=== PATIENT | male | born 1995 | race Hispanic/Latino ===

== ENCOUNTER 2021-07-24 11:22 | Emergency (ER) | payer OTHER ==
[~2021-07-24] VITALS: Ht 180.3 cm; Wt 75.0 kg
[2021-07-24] MEDS ORDERED: KETOROLAC 30 MG/ML 1ML VIAL IV ONE (11:50)
[2021-07-24 12:14] LABS: HEMATOCRIT 47.3 % (42.0-52.0); HEMOGLOBIN 16.1 g/dl (13.5-17.5); MEAN CORPUSCULAR HEMOGLOBIN 30.1 pg (27.0-33.0); MEAN CORPUSCULAR VOLUME 88.6 fl (80.0-96.0); PLATELET COUNT, AUTOMATED 207 10^3/uL (150-450); RED BLOOD COUNT 5.34 10^6/uL (4.30-6.10); WHITE BLOOD COUNT 4.4 10^3/uL (4.0-10.0)
--- OUTSIDE RECORDS SUMMARY | 2021-07-24 12:38 | CCD ---
Author Author [facility] Organization [facility] Address Unknown Phone Unavailable Support Name Relationship Address Phone [facility] Next Of Kin [address] [place] [address] Unavailable HOLLOWAY SHAY Next Of Kin [address] [place] [address] HOLLOWAYALEN Hazel Next Of Kin [address] [place] [address] SHAY BELTRAN Next Of Kin Unknown JEWEL TERESITA Next Of Kin Unknown Care Team Providers Care Career Services Manager Name Role Phone Fish, B Mariano MONTEZ Unavailable Unavailable Fish, B Mariano MONTEZ Unavailable Unavailable Fish, B Mariano MONTEZ Unavailable Unavailable Fish, B Mariano MONTEZ Unavailable Unavailable Fish, B Mariano MONTEZ Unavailable Unavailable Fish, B Mariano MONTEZ Unavailable Unavailable Fish, B Mariano MONTEZ Unavailable Unavailable Fish, B Mariano MONTEZ Unavailable Unavailable Fish, B Mariano MONTEZ Unavailable Unavailable Fish, B Mariano MONTEZ Unavailable Unavailable Fish, B Mariano MONTEZ Unavailable Unavailable Fish, B Mariano MONTEZ Unavailable Unavailable Fish, B Mariano MONTEZ Unavailable Unavailable Fish, B Mariano MONTEZ Unavailable Unavailable Fish, B Mariano MONTEZ Unavailable Unavailable Fish, B Mariano MONTEZ Unavailable Unavailable Fish, B Mariano MONTEZ Unavailable Unavailable Fish, B Mariano MONTEZ Unavailable Unavailable Fish, B Mariano MONTEZ Unavailable Unavailable Fish, B Mariano MONTEZ Unavailable Unavailable Fish, B Mariano MONTEZ Unavailable Unavailable Fish, B Mariano MONTEZ Unavailable Unavailable Fish, B Mariano MONTEZ Unavailable Unavailable Fish, B Mariano MONTEZ Unavailable Unavailable Fish, B Mariano MONTEZ Unavailable Unavailable Fish, B Mariano MONTEZ Unavailable Unavailable Fish, B Mariano MONTEZ Unavailable Unavailable Fish, B Mariano MONTEZ Unavailable Unavailable Fish, B Mariano MONTEZ Unavailable Unavailable Fish, B Mariano MONTEZ Unavailable Unavailable Fish, B Mariano MONTEZ Unavailable Unavailable Fish, B Mariano MONTEZ Unavailable Unavailable Fish, B Mariano MONTEZ Unavailable Unavailable Fish, B Mariano MONTEZ Unavailable Unavailable Fish, B Mariano MONTEZ Unavailable Unavailable Fish, Renetta Quintana MD Unavailable Unavailable Fish, B Mariano MONTEZ Unavailable Unavailable Fish, B Mariano MONTEZ Unavailable Unavailable Fish, B Mariano MONTEZ Unavailable Unavailable Fish, B Mariano MONTEZ Unavailable Unavailable Fish, B Mariano MONTEZ Unavailable Unavailable Fish, B Mariano MONTEZ Unavailable Unavailable Fish, Renetta Quintana MD Unavailable Unavailable Fish, B Mariano MONTEZ Unavailable Unavailable Fish, B Mariano MONTEZ Unavailable Unavailable Fish, B Mariano MONTEZ Unavailable Unavailable Fish, B Mariano MONTEZ Unavailable Unavailable Fish, B Mariano MONTEZ Unavailable Unavailable Fish, B Mariano MONTEZ Unavailable Unavailable Fish, B Mariano MONTEZ Unavailable Unavailable Fish, B Mariano MONTEZ Unavailable Unavailable Fish, B Mariano MONTEZ Unavailable Unavailable Fish, B Mariano MONTEZ Unavailable Unavailable Fish, B Mariano MONTEZ Unavailable Unavailable Fish, B Mariano MONTEZ Unavailable Unavailable Fish, B Mariano MONTEZ Unavailable Unavailable Fish, B Mariano MONTEZ Unavailable Unavailable MCELHERAN, TERESITA PA Unavailable Unavailable MCELHERAN, TERESITA PA Unavailable Unavailable MCELHERAN, TERESITA PA Unavailable Unavailable MCELHERAN, TERESITA PA Unavailable Unavailable MCELHERAN, TERESITA PA Unavailable Unavailable MCELHERAN, TERESITA PA Unavailable Unavailable MCELHERAN, TERESITA PA Unavailable Unavailable MCELHERAN, TERESITA PA Unavailable Unavailable MCELHERAN, TERESITA PA Unavailable Unavailable MCELHERAN, TERESITA PA Unavailable Unavailable MCELHERAN, TERESITA PA Unavailable Unavailable MCELHERAN, TERESITA PA Unavailable Unavailable MCELHERAN, TERESITA PA Unavailable Unavailable MCELHERAN, TERESITA PA Unavailable Unavailable MCELHERAN, TERESITA PA Unavailable Unavailable MCELHERAN, TERESITA PA Unavailable Unavailable MCELHERAN, TERESITA PA Unavailable Unavailable MCELHERAN, TERESITA PA Unavailable Unavailable MCELHERAN, TERESITA PA Unavailable Unavailable MCELHERAN, TERESITA PA Unavailable Unavailable MCELHERAN, TERESITA PA Unavailable Unavailable MCELHERAN, TERESITA PA Unavailable Unavailable MCELAN, TERESITA PA Unavailable Unavailable MCELHERAN, TERESITA PA Unavailable Unavailable MCELHERAN, TERESITA PA Unavailable Unavailable MCELHERAN, TERESITA PA Unavailable Unavailable MCELHERAN, TERESITA PA Unavailable Unavailable MCELHERAN, TERESITA PA Unavailable Unavailable MCELHERAN, TERESITA PA Unavailable Unavailable Mic Sandra MD Unavailable Unavailable Mic Sandra MD Unavailable Unavailable Mic Sandra MD Unavailable Unavailable Mic Sandra MD Unavailable Unavailable Mic Sandra MD Unavailable Unavailable Mic Sandra MD Unavailable Unavailable UNKNOWN, [facility] Unavailable Unavailable TURRIN, LOUISE Unavailable Unavailable TURRIN, LOUISE Unavailable Unavailable TURRIN, LOUISE Unavailable Unavailable TURRIN, LOUISE Unavailable Unavailable CHANLIECCO, C SAMANTHA MD Unavailable Unavailable CHANLIECCO, C SAMANTHA MD Unavailable Unavailable CHANLIECCO, C SAMANTHA MD Unavailable Unavailable CHANLIECCO, C SAMANTHA MD Unavailable Unavailable CHANLIECCO, C SAMANTHA MD Unavailable Unavailable CHANLIECCO, C SAMANTHA MD Unavailable Unavailable CHANLIECCO, C SAMANTHA MD Unavailable Unavailable CHANLIECCO, C SAMANTHA MD Unavailable Unavailable CHANLIECCO, C SAMANTHA MD Unavailable Unavailable CHANLIECCO, C SAMANTHA MD Unavailable Unavailable CHANLIECCO, C SAMANTHA MD Unavailable Unavailable Re-disclosure Warning The records that you are about to access may contain information from federally-assisted alcohol or drug abuse programs. If such information is present, then the following federally mandated warning applies: This information has been disclosed to you from records protected by federal confidentiality rules (42 CFR part 2). The federal rules prohibit you from making any further disclosure of this information unless further disclosure is expressly permitted by the written consent of the person to whom it pertains or as otherwise permitted by 42 CFR part 2. A general authorization for the release of medical or other information is NOT sufficient for this purpose. The Federal rules restrict any use of the information to criminally investigate or prosecute any alcohol or drug abuse patient.The records that you are about to access may contain highly sensitive health information, the redisclosure of which is protected by Article 27-F of the [facility] Public Health law. If you continue you may have access to information: Regarding HIV / AIDS; Provided by facilities licensed or operated by the [facility] Office of Mental Health; or Provided by the [facility] Office for People With Developmental Disabilities. If such information is present, then the following [facility] mandated warning applies: This information has been disclosed to you from confidential records which are protected by state law. State law prohibits you from making any further disclosure of this information without the specific written consent of the person to whom it pertains, or as otherwise permitted by law. Any unauthorized further disclosure in violation of state law may result in a fine or penitentiary sentence or both. A general authorization for the release of medical or other information is NOT sufficient authorization for further disc losure. Encounters Encounter Providers Location Date Indications Data Source(s ) Emergency Attender: SAMANTHA CHANLIECCO MDConsultant: LEO UNKNOWN 07/14/2021 07:35:00 PM EST - 07/14/2021 11:07:00 PM [facility] Patient discharged. Emergency Attender: Mic Sandra MD 03/12/2021 11:03:00 PM EDT - 03/13/2021 12:32:00 AM EDT [facility] Patient discharged. Emergency Attender: LOUISE ANG 2020 12:12:00 PM EDT - 03/07/2021 03:40:00 PM EDT [facility] Patient discharged. OFFICE OUTPATIENT VISIT 15 MINUTES Attender: TERESITA DEMPSEY PA Physical Therapy 02/24/2021 02:30:00 PM EDT [facility] ([facility]) Outpatient Attender: TERESITA MERINO Physical Therapy 02/23/2021 08:45:00 AM EDT [facility] ([facility]) OFFICE OUTPATIENT NEW 30 MINUTES Attender: Mariano Acevedo MD Physic al Therapy 06/07/2020 09:00:00 AM EDT [facility] ([facility]) Immunizations Vaccine Date Status Description Data Source(s) COVID-19 VACCINE Pfizer 05/11/2021 12:00:00 AM EDT completed [facility] Vaccine Series Complete: NOThis Data was Submitted to [facility]. Medications No Information Insurance Providers Payer name Policy type / Coverage type Policy ID Covered alliance party ID Covered alliance party's relationship to brian Policy Brian Plan Information [facility] [employer]UTY [id number] SP [id number] [facility] HUMANA - O/P [id number] 18 [id number] Problems, Conditions, and Diagnoses Code Display Name Description Problem Type Effective Dates Data Source(s) Y990 Civilian activity done for income or pay Civilian activity done for income or pay Diagnosis 07/14/2021 07:35:00 PM [facility] Y9289 Other specified places as the place of o ccurrence of the external cause Other specified places as the place of occurrence of the external cause Diagnosis 07/14/2021 07:35:00 PM [facility] [id number] Overexertion from prolonged static or awkward postures, initial encounter Overexertion from prolonged static or aw kward postures, initial encounter Diagnosis 07/14/2021 07:35:00 PM [facility] [id number] Sprain of anterior cruciate ligament of right knee, initial encounter Sprain of anterior cruciate ligament of right knee, initial encounter Diagnosis 07/14/2021 07:35:00 PM [facility] [id number] Unspecified injury of right lower leg, i nitial encounter Unspecified injury of right lower leg, initial encounter Diagnosis 07:35:00 PM [facility] B57400 Nicotine dependence, other tobacco produ ct, uncomplicated Nicotine dependence, other tobacco product, uncomplicated Diagnosis 03/12 11:03:00 PM EDT [facility] B349 Viral infection, unspecified Viral infection, unspecif ied Diagnosis 03/12/2021 11:03:00 PM EDT [facility] R509 Fever, unspecified Fever, unspecified Diagnosis 11:03:00 PM EDT [facility] N341 Nonspecific urethritis Nonspecific urethritis Diagnosi s 03/07/2021 12:12:00 PM EDT [facility] R300 Dysuria Dysuria Diagnosis 03/07/2021 12:12:00 PM ED T [facility] Surgeries/Procedures Procedure Description Date Indications Data Source(s) OFFICE OUTPATIENT VISIT 15 MINUTES 02/24/2021 12:00:00 AM EDT [facility] ([facility] OFFICE OUTPATIENT VISIT 10 MINUTES 02/23/2021 12:00:00 AM EDT [facility] ([facility] ) OFFICE OUTPATIENT VISIT 25 MINUTES 02/23/2021 12:00:00 AM EDT [facility] ([facility]) ARTHROCENTESIS ASPIR&/INJECTION MAJOR JT/BURSA 020 12:00:00 AM [facility] Results ID Date Data Source [id number] 07/15/2021 09:55:00 AM [facility] [address] [place] [address] PHONE: [phone] FAX: [phone] Name .................. : JAIMEE MARK I Acct Number.................. : [id number] ROOM. ................. : VT-20 MR Number ................... : [id number] Stay type ............. : E/R Discharge Date......... ... : Admit Date ......... : 07/14/21 Admit Phys .................... : CHANLIECCO Date of ....... : 1995 Family Phys ................... : UNKNOWN JAREK Phone .................. : [phone] Age ................................ : 26 Film# .................. .:[id number] Sex ................................. : M Unsigned transcriptions are preliminary reports and do not represent a medical or legal document KNEE COMPLETE-4 OR MORE VWS R 33760KB COMPLETE:07/14/21 20:22 ML 37170 Reason(s): Knee Injury RADIOGRAPHS OF THE RIGHT KNEE 4 VIEWS INDICATION: Knee injury COMPARISON: None. FINDINGS: There is a 5 mm enthesophyte at the upper pole of the patella insertion of the quadriceps. No acute fracture or dislocation. Joint spaces are well preserved. No marginal osteophytes or erosions. No joint effusion. IMPRESSION: No acute fracture. Electronically Reviewed and Signed By Don Medina MD , 07/15/21 09:55, YOHANNES Transcribe Initials: PHUONG , Transcribe Date: 07/14/21 22:51, Dictation Date: Copy for: ANN [facility]AUER via fax Copy for: EMERGENCY DEPT via modem Copy for: 710 MED REC DISCHARGED Page 1 of 1 Name Value Range Interpretation Code Description Data Cinda rce(s) Supporting Document(s) ID Date Data Source [id number] 07/14/2021 07:35:00 PM EST [facility] 1 OrderSheet [facility] Emergency Department [address] [place] [address] Phone #: [phone] 07/14/2021 19:35 Patient: JAS HERMOSILLO I Sex: M : 1995 Age: 26yWEIGHT:74.8 kg (S) HEIGHT:72 inches (S) BMI:22.4ALLERGIES: No Known Drug AllergyCHIEF COMPLAINT: knee, RtDIAGNOSIS: Sprain of the anterior cruciate ligament of the right knee.LAB ORDERSOrder Description Priority Entered Acknowledged InitialedDIAGNOSTIC STUDY ORDERSOrder Description Priority Entered Acknowledged InitialedKnee Complete STAT 19:50 07/14/2021 22:37 Marisol Moody R.N.; Wily Argueta(Oxygen?(No)) Verbal order per; Mookie Tam P.A.-C Reason for Study: Knee Injury, PainMEDICATION/IV/DRIP/FLUID ORDERSOrder Description Priority Entered Acknowledged InitialedMotrin 800 mg PO 22:28 07/14/2021 22:47 Jeri BlairX1 dose: 800 mg Samantha Limon R.N.(NOW x1) ;GENERAL ORDERSOrder Description Priority Entered Acknowledged InitialedKnee Immobilizer 22:28 07/14/2021 22:37 Jeri Rothir(to right knee) Samantha Limon R.N. ;[Electronically signed by Samantha Limon (00:51 07/15/2021)][Electronically signed by Jeri Garibay R.N. (05:09 07/15/2021)][Electronically locked by Jeri Garibay R.N. (05:09 07/15/2021)] Name Value Range Interpretation Code Description Data Cinda rce(s) Supporting Document(s) ID Date Data Source [id number] 07/14/2021 07:35:00 PM [facility] 1 Medication Reconciliation Report [facility] Emergency Department [address] [place] [address] Phone #: ext [phone] 07/14/2021 19:35 Patient: JAS HERMOSILLO I Sex: M : 1995 Age: 26yWeight: 74.8 kgHeight/Length: 72 in.BMI: 22.4ALLERGIES: No Known Drug AllergyThe patient's Home Medications are listed below:CONTINUE TAKING THE FOLLOWING MEDICATIONS: traZODone HCl OralThe source(s) of the original Home Medication information:Not obtained.The following Medications were given to the patient in the Emergency Department:Motrin [PO] PO 800 mg, administered: 22:47 07/14/2021The following Medications were prescribed to the patient:IBU 800 mg tablet Take 1 tablet three times a day as needed for pain for 7 days -- Dispense 21 tablet.Refills: 0. Substitution permitted.Pharmacy - [facility] [id number] [facility] ; [place] [address]. Phone: . -- Samantha Limon Name Value Range Interpretation Code Description Data Cinda rce(s) Supporting Document(s) ID Date Data Source [id number] 07/14/2021 07:35:00 PM [facility] 1 Medication Administration Record [facility] Emergency Department [address] [place] [address] Phone #: ext [phone] 07/14/2021 19:35 Patient: JAS HERMOSILLO I Sex: M : 1995 Age: 26yWeight: 74.8 kgHeight/Length: 72 inBMI: 22.4ALLERGIES: No Known Drug Allergy Date/Time Medication Administered Medication OrderedGiven MOTRIN [PO] (IBUPROFEN) Motrin 800 mg PO X1 dose: 59239:47 07/14/2021 Dose: 800 mg Tablets PO mg (NOW x1)Jeri Julien R.N. Name Value Range Interpretation Code Description Data Cinda rce(s) Supporting Document(s) ID Date Data Source [id number] 07/14/2021 07:35:00 PM EST [facility] 1 General Instructions [facility] Emergency Department [address] [place] [address] Phone #: ext- [phone] 07/14/2021 19:35 Patient: JAS HERMOSILLO I Sex: M : 1995 Age: 26y Sprain of the anterior cruciate ligament of the right knee.INSTRUCTIONS Apply ice for 10 minutes four times a day for two days followed by moist heat 10 minutes four times a day for two days. Don't apply ice directly to skin, don't use while asleep and don't use high setting on heating pad. Use crutches for seven days. Wear knee immobilizer for seven days. No weight bearing on right leg for seven days. Do not work for seven days. (take Motrin for pain. no work x 1 week. use crutches for ambulation x 1 week. follow up with medical post in am for crutches. follow jup with orthopedics if pain is persistent after 1 week). Your Current Medications: Your current home medications have been reviewed. CONTINUE TAKING THE FOLLOWING MEDICATIONS: traZODone HCl Oral. Prescription Medications: IBU 800 mg tablet Take 1 tablet three times a day as needed for pain for 7 days -- Dispense 21 tablet. Refills: 0. Substitution permitted. Pharmacy - [facility] - [id number] [facility] ; [place] [address]. . Follow-up: Follow up with your healthcare provider today. Follow-up with: [facility], , , [address] [address], , [place], [address] Follow up in seven days if not better. Call for an appointment. Reason for referral: evaluation. Summary of care provided to patient via paper. ADDITIONAL INFORMATIONKnee Sprain 2 General Instructions [facility] Emergency Department [address] [place] [address] Phone #: ext- [phone] 07/14/2021 19:35 Patient: JAS HERMOSILLO I Sex: M : 1995 Age: 26y A sprain is an injury to the ligaments or capsule that holds a joint together. There are no brokenbones. Most sprains take 3 to 6 weeks to heal. If it a severe sprain where the ligament is completelytorn, it can take months to recover.Most knee sprains are treated with a splint, knee immobilizer brace, or elastic wrap for support.Severe sprains may rarely require surgery.Home care Stay off the injured leg as much as possible until you can walk on it without pain. If you have a lot of pain with walking, crutches or a walker may be prescribed. (These can be rented or purchased at many pharmacies and surgical or orthopedic supply stores). Follow your healthcare provider's advice about when to begin putting weight on that leg. Keep your leg elevated to reduce pain and swelling. When sleeping, place a pillow under the injured leg. When sitting, support the injured leg so it is above heart level. This is very important during the first 48 hours. 3 General Instructions [facility] Emergency Department [address] [place] [address] Phone #: [phone]- [phone] 07/14/2021 19:35 Patient: JAS HERMOSILLO I Sex: M : 1995 Age: 26y Apply an ice pack over the injured area for 15 to 20 minutes every 3 to 6 hours. You should do this for the first 24 to 48 hours. You can make an ice pack by filling a plastic bag that seals at the top with ice cubes and then wrapping it with a thin towel. Continue to use ice packs for relief of pain and swelling as needed. As the ice melts, be careful to avoid getting your wrap, splint, or cast wet. After 48 hours, apply heat (warm shower or warm bath) for 15 to 20 minutes several times a day, or alternate ice and heat. You can place the ice pack directly over the splint. If you have to wear a xiph-lzj-boac knee brace, you can open it to apply the ice pack, or heat, directly to the knee. Never put ice directly on the skin. Always wrap the ice in a towel or other type of cloth. You may use xvaz-xqz-uocpyts pain medicine to control pain, unless another pain medicine was prescribed. If you have chronic liver or kidney disease or ever had a stomach ulcer or gastrointestinal bleeding, talk with your healthcare provider before using these medicines. If you were given a splint, keep it completely dry at all times. Bathe with your splint out of the water, protected with 2 large plastic bags, sealed with rubber bands or tape at the top end. If a fiberglass splint gets wet, you can dry it with a chairman of the board set to cool. If you have a snsn-fff-ubvd knee brace, you can remove this to bathe, unless told otherwise.Follow-up careFollow up with your doctor as advised. Any X-rays you had today don't show any broken bones,breaks, or fractures. Sometimes fractures don't show up on the first X-ray. Bruises and sprains cansometimes hurt as much as a fracture. These injuries can take time to heal completely. If yoursymptoms don't improve or they get worse, talk with your doctor. You may need a repeat X-ray. IfX-rays were taken, you will be told of any new findings that may affect your care.Call [phone] if you have: Shortness of breath Chest painWhen to seek medical adviceCall your healthcare provider right away if any of these occur: The splint or knee immobilizer brace becomes wet or soft The fiberglass cast or splint remains wet for more than 24 hours Pain or swelling increases The injured leg or toes become cold, blue, numb, or tingly 4 General Instructions [facility] Emergency Department [address] [place] [address] Phone #: [phone]- [phone] 07/14/2021 19:35 Patient: JAS HERMOSILLO I Sex: M : 1995 Age: 26y [id number] [facility]. All rights reserved. This information is not intended as a substitute for professional medical care. Alwaysfollow your healthcare professional's instructions.Crutch WalkingCrutch adjustmentMake sure the crutches you use are adjusted to fit you. When you stand, there should be room to fit 2to 3 fingers between the top of the crutch and your armpit. Your elbow should be slightly bent whenholding the hand transfer operator. When your arms hang down, the crutch handle should be at the top of yourhip.Crutch walkingPlace the crutches forward about 1 foot in front of you. The crutches should be a little farther apartthan your body. Lean your weight forward as you push down on the hand transfer operator. Make sure yourweight is on your hands and your strong leg, not your armpits. Let your body swing forward, landing 5 General Instructions [facility] Emergency Department [address] [place] [address] Phone #: [phone]- [phone] 07/14/2021 19:35 Patient: JAS HERMOSILLO I Sex: M : 1995 Age: 26yon the strong leg. Move the crutches forward again. The crutch and your injured leg should movetogether.Going up steps with no handrails(Up with the good leg) With both crutches (under each armpit) on the same step as your feet, push down on the hand transfer operator. Balancing with very light pressure on the weak leg, let your hands support your weight. Raise your strong leg onto the next higher step. Transfer all your weight to your strong leg (still bent). Move the crutches up to the next step, next to your strong leg. Keep your weight evenly balanced on the two crutches and your strong leg. Straighten your strong knee as you raise your weak leg up to the next step.Going down steps with no handrails(Down with the bad leg) With both crutches (under each armpit) on the same step as your feet, push down on the hand transfer operator. Keep your weight evenly balanced on the two crutches and your strong leg. Bend your strong knee as you lower your weak leg down to the next step. Let your strong leg support you (still bent) as you move the crutches down next to the weak leg. Transfer your weight to your hands. Balance with very light pressure on your weak leg as you lower your strong leg next to your weak legGoing up steps with handrails(Up with the good leg) Face the stairs, holding the handrail with one hand. Place both crutches under your armpit on the opposite side. Push down on the hand transfer operator. Balancing with very light pressure on the weak leg, let your hands s upport your weight. Raise your strong leg onto the next higher step. Transfer all your weight to your strong leg (still bent) as you move the crutches up (while holding on to the handrail) to the next step next to the strong leg. 6 General Instructions [facility] Emergency Department [address] [place] [address] Phone #: ext- [phone] 07/14/2021 19:35 Patient: JAS HERMOSILLO I Sex: M : 1995 Age: 26y Keep your weight evenly balanced on the handrail, the crutches (still under the same armpit opposite the handrail), and your strong leg. Straighten your strong knee as you raise the weak leg up to the next step.Going down steps with handrails(Down with the bad leg) Face the stairs, holding the handrail with one hand. Place both crutches under your armpit on the opposite side. Push down on the hand transfer operator. Balance your weight evenly on the crutches, handrail, and your strong leg. Then bend your strong knee as you lower the weak leg down to the next step. Let the handrail and your strong leg support you (still bent) as you move the crutches down alongside the weak leg. While holding on to the handrail and crutches (under the same armpit on the other side), transfer your weight to your hands, balancing with very light pressure on the weak leg as you lower your strong leg alongside your weak legTip: If you are worried about falling or you feel unsteady, try sitting when going up or down stairsinstead. Sit on the bottom step and keep your injured leg out in front of you. Hold your crutches flatagainst the stairs. Then slide up to the next step on your bottom. Use your free hand and good leg forsupport. Face the same way when going down stairs. [facility]. All rights reserved. This information is not intended as a substitute for professional medical care. Alwaysfollow your healthcare professional's instructions.Knee ImmobilizerA knee immobilizer is a type of brace used to provide support and limit movement of the knee. Thiswill make you more comfortable as your injury heals.Home care The knee brace should be worn whenever you are out of bed, unless told otherwise. You may wear it in bed while asleep for the first few nights or until the pain starts to go away. Otherwise, you can remove the brace at night to avoid muscle stiffness from lack of joint movement. You can open the cuha-rhz-rgdb brace to dress, bathe, and apply ice or heat packs as directed.Call 911 7 General Instructions [facility] Emergency Department [address] [place] [address] Phone #: ext- [phone] 07/14/2021 19:35 Patient: JAS HERMOSILLO I Sex: M : 1995 Age: 26yCall 911 if you have: Shortness of breath Chest painWhen to seek medical adviceCall your healthcare provider right away if any of these occur: Worsening pain in the knee Weakness, numbness, or tingling in the foot Increased swelling, redness or warmth of the knee joint [facility]. All rights reserved. This information is not intended as a substitute for professional medical care. Alwaysfollow your healthcare professional's instructions. You have been given the following additional information: Knee Sprain Crutch Walking Knee Immobilizer No weight bearing on right leg for seven days. Do not work for seven days.(Electronically signed by Samantha Limon 07/15/2021 00:51) Name Value Range Interpretation Code Description Data Cinda rce(s) Supporting Document(s) ID Date Data Source [id number] 07/14/2021 07:35:00 PM EST [facility] 1 Clinical Report - Nurses [facility] Emergency Department [address] [place] [address] Phone #: ext- [phone] 07/14/2021 19:35 Patient: JAS HERMOSILLO I Sex: M : 1995 Age: 26yTRIAGEArrived by private vehicle. Historian: patient. Accompanied by co-worker. ( slipped off ladder andlanded on right knee).Acuity: LEVEL 4.Chief Complaint: RIGHT LOWER EXTREMITY PAIN.Alert.Injury occurred. This started today. Onset. (1600).Treatment AIR CONDITIONING INSTALLER:None.SEPSIS SCREEN: NEGATIVE. SIRS criteria negative. --19:49 07/14/21 Marisol Oliveira R.N.19:44 07/14/21. BP: 120/71. MAP: 87. HR: 75. RR: 16. O2 saturation: 98%. Temp: 98.1 F. Pain level now:02/19. --19:49 07/14/21 Marisol Oliveira R.N.Weight: 74.8 kg stated. Height/Length: 72 inches Per Patient. BMI: 22.4. --19:43 07/14/21 Marisol Oliveira R.N.MedicationstraZODone HCl Oral. --19:45 07/14/21 Marisol Oliveira R.N.AllergiesNo Known Drug Allergy. --19: 45 07/14/21 Marisol Oliveira R.N.PROBLEMS:Knee pain.Urethritis.Viral Disease. --19:46 07/14/21 Marisol Oliveira R.N.ADDITIONAL SURGERIES:no known surgeries.HistoryPAST MEDICAL HX: Immunizations: up-to-date.SOCIAL HX: Smoker- current status unknown (vape). Occasional alcohol use. No drug use. He wasoffered HIV testing but declined and hepatitis C testing but declined. He has not traveled outside the [place]Infectious disease exposure: No infectious disease exposure. The patient was not exposed to Coronavirus.(vaccinated for covid). Patient is not a known carrier of tuberculosis, hepatitis, HIV, MRSA or VRE. Patient 2 Clinical Report - Nurses [facility] Emergency Department [address] [place] [address] Phone #: ext- [phone] 07/14/2021 19:35 Patient: JAS HERMOSILLO I Sex: M : 1995 Age: 26y is not a known carrier of CRE. SELF HARM ASSESSMENT: Self harm assessment was performed. The patient answered "no" to the question(s) "Have you recently felt down, depressed, or hopeless?" and "Do you have thoughts of harming or killing yourself?". ABUSE ASSESSMENT: Abuse assessment. Abuse denied. No suspicion of abuse. No report of abuse. NUTRITIONAL RISK ASSESSMENT: The nutritional risk assessment revealed no deficiencies. FUNCTIONAL ASSESSMENT: Functional assessment: no impairments noted. LEARNING NEEDS ASSESSMENT: The learning needs assessment revealed no barriers. FALL RISK ASSESSMENT: Fall risk assessment completed. No risk factors identified. SKIN INTEGRITY ASSESSMENT: Skin integrity risk assessment completed. No skin integrity risk identified. --19:49 07/14/21 Marisol Oliveira R.N. Interventions Identification band on patient. To treatment room. --19:49 07/14/21 Marisol Oliveira R.N.PHYSICAL TQOXABECFH25:41 07/14/21. Ambulatory to room.GENERAL / NEURO / PSYCH: Oriented X 4. Alert.EXTREMITIES: Extremity pulses are within normal limits. Neuro-vascular status intact to the extremity.No lower extremity edema.SKIN: Skin intact. Skin is warm and dry. --23:06 07/14/21 Jeri Julien R.N.NURSING PROGRESS NOTES22:42 07/14/21. Reassurance given. Call light placed in reach. Bed placed in lowest position. Brakesof bed on. --23:07 07/14/21 Jeri Julien R.N. 22:47 07/14/2021 Motrin (Ibuprofen) PO Tablets 800 mg given. Allergies verified and confirmed 5 rights. Information reviewed with patient including reason for taking this medication. Verbalizes understanding. --22:47 07/14/21 Jeri Julien R.N.DISPOSITION / DISCHARGE 22:42 07/14/21. BP: 120/86. MAP: 97. HR: 59. RR: 16. O2 saturation: 97%. Temp: 97.1 F. Pain level now: 02/19. --22:43 07/14/21 Earnesth[place] professional poker player, ChuyRUFINO Tech1 Departure time: 22:50 07/14/2021. Condition at departure: improved and stable. No learning barriers present. Reviewed medication(s) information. Activity restrictions reviewed (use knee immobilizer, see PCP for crutches). Patient verbalized understanding. Written instructions provided in Iranian. 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 He was discharged home. He left ambulatory and via private vehicle. Parent driving. --23:05 07/14/21 Jeri Julien R.N. Hazel Coma Scale: 15- eyes open- spontaneous (4); best verbal response- oriented (5); best motor response- obeys commands (6). --23:07 07/14/21 Jeri Julien R.N.Locked/Released at 07/15/2021 05:09 by Jeri Julien R.N. Name Value Range Interpretation Code Description Data Cinda rce(s) Supporting Document(s) ID Date Data Source [id number] 07/14/2021 07:35:00 PM [facility] 1 Clinical Report - Physicians/Mid Levels [facility] Emergency Department [address] [place] [address] Phone #: ext- [phone] 07/14/2021 19:35 Patient: JAS HERMOSILLO I Sex: M : 1995 Age: 26y Time Seen: 22:24 07/14/2021; initial patient contact, initial documentation. Arrived- By private vehicle. Historian- patient. Disposition decision: 22:33 07/14/2021.HISTORY OF PRESENT ILLNESS Chief Complaint: Injury to right knee. The injury happened today 4 PM. Fell. He sustained a twisting injury. Occurred at work. Patient is experiencing moderate pain. No injury to the head or neck or other injury. (Patient states that he was at work at [place] and was changing the filter of the truck it was raining and he slipped twisted the right knee and landed on the right knee. he has pain on flexion of the knee. he has not taken any medication for the pain.).REVIEW OF SYSTEMSThe patient complains of pain on weight bearing. He has had swelling. No tingling, weakness,numbness, suspected foreign body or skin laceration. All other systems reviewed and are negative.PAST HISTORYSee nurses notes. Tetanus immunization status is up-to-date. Problems: Knee pain. Urethritis. Viral Disease. Additional Surgeries: no known surgeries. Medications: traZODone HCl Oral. Allergies: No Known Drug Allergy.SOCIAL HISTORYNever smoker. No alcohol use.ADDITIONAL NOTESThe nursing notes have been reviewed.PHYSICAL EXAM 2 Clinical Report - Physicians/Mid [facility] Emergency Department [address] [place] [address] Phone #: [phone]- [phone] 07/14/2021 19:35 Patient: JAS HERMOSILLO I [facility]#: [id number] Sex: M : 1995 Age: 26y Vital Signs: 07/14/2021 19:44 BP: 120/71. MAP: 87. HR: 75. RR: 16. O2 saturation: 98%. Temp: 98.1 F. Pain level now: 02/19. Have been reviewed. Oxygen saturation normal. Appearance: Alert. Oriented X3. Appears to be in pain. Extremities: Right knee: moderate tenderness and swelling located in the infrapatellar area and proximal tibia. Limited ROM secondary to pain (diminished flexion and extension). Neurovascular intact distally. No ligamentous laxity present. No joint effusion. No erythema, laceration, abrasion , ecchymosis or puncture wound. No foreign body or deformity. Extremities otherwise negative. Neuro, Vascular and Tendons: Vascular status intact. Sensation intact. Motor intact. Gait: Gait not tested due to pain.LABS, X-RAYS, AND EKGRt Knee X-ray: No fracture. Normal alignment. No bony lesion, air in the soft tissue or foreign body.Soft tissues normal. Joint spaces normal. Views: AP, lateral and oblique. Technique: good. TheX-rays were independently viewed by me and interpreted contemporaneously by me. Prior films were notavailable for comparison. Interpretation time: 22:31 07/14/2021.PROGRESS AND PROCEDURESCourse of Care: 22:31 07/14/21. Patient given Motrin for pain and placed on a knee immobilizer. wedo not have crutches here but he can get it at post. advised no weight bearing activity and follow upwith ortho in 1 week if no improvement. Patient counseled in person regarding the patient's stable condition, test results, diagnosis and need for follow-up. Patient agrees with plan of care. 22: 33. Disposition: Discharged home in good condition (22:33). Condition: good. Discharge decision based on the following: patient's condition is stable; patient's exam is stable; no abnormal test results; stable condition on repeat evaluation; social support is adequate; transportation is available; follow-up is available; clinical impression is consistent with outpatient treatment.CLINICAL IMPRESSION Sprain of the anterior cruciate ligament of the right knee.INSTRUCTIONS Apply ice for 10 minutes four times a day for two days followed by moist heat 10 minutes four times a day for two days. Don't apply ice directly to skin, don't use while asleep and don't use high setting on heating pad. Use crutches for seven days. Wear knee immobilizer for seven days. No weight bearing on right leg for seven days. Do not work for seven days. (take Motrin for pain. no work x 1 week. use crutches for ambulation x 1 week. follow up with medical post in am for crutches. follow jup with orthopedics if pain is persistent after 1 week). 3 Clinical Report - Physicians/Mid Levels [facility] Emergency Department [address] [place] [address] Phone #: ext- [phone] 07/14/2021 19:35 Patient: JAS HERMOSILLO I Sex: M : 1995 Age: 26y Your Current Medications: Your current home medications have been reviewed. CONTINUE TAKING THE FOLLOWING MEDICATIONS: traZODone HCl Oral. Prescription Medications: IBU 800 mg tablet Take 1 tablet three times a day as needed for pain for 7 days -- Dispense 21 tablet. Refills: 0. Substitution permitted. Pharmacy - [facility] - [id number] [facility] ; [place] [address]. . Follow-up: Follow up with your healthcare provider today. Follow-up with: [facility], , , [address] [address], , [place], [address] Follow up in seven days if not better. Call for an appointment. Reason for referral: evaluation. Summary of care provided to patient via paper.(Electronically signed by Samantha Limon 07/15/2021 00:51) Name Value Range Interpretation Code Description Data Cinda rce(s) Supporting Document(s) ID Date Data Source [id number] 04/20/2021 01:25:00 PM EDT [facility] Name Value Range Interpretation Code Description Data Cinda rce(s) Supporting Document(s) SARS coronavirus 2 RNA Not Detected [facility] This lab was ordered by [facility] and reported by [facility]. ID Date Data Source [id number] 03/12/2021 11:03:00 PM EDT [facility] 1 OrderSheet [facility] Emergency Department [address] [place] [address] Phone #: ext- [phone] 03/12/2021 22:58 Patient: JAS HERMOSILLO I Sex: M : 1995 Age: 25yWEIGHT:74.8 kg (S) HEIGHT:73 inches (S) BMI:21.8ALLERGIES: No Known Drug AllergyCHIEF COMPLAINT: feverDIAGNOSIS: Viral diseaseLAB ORDERSOrder Description Priority Entered Acknowledged InitialedDIAGNOSTIC STUDY ORDERSOrder Description Priority Entered Acknowledged InitialedMEDICATION/IV/DRIP/FLUID ORDERSOrder Description Priority Entered Acknowledged InitialedToradol IM 30 mg 23:48 03/12/2021 23:52 Giuliana,(NOW x1) Mic Sandra ; Maryanne ArguetaGENERAL ORDERSOrder Description Priority Entered Acknowledged Initialed[Electronically signed by Maryanne Giordano R.N. (00:32 03/13/2021)][Electronically signed by Mic Sandra (00:49 03/13/2021)][Electronically locked by Maryanne Giordano R.N. (00:32 03/13/2021)] Name Value Range Interpretation Code Description Data Cidna rce(s) Supporting Document(s) ID Date Data Source [id number] 03/12/2021 11:03:00 PM EDT [facility] 1 Medication Reconciliation Report [facility] Emergency Department [address] [place] [address] Phone #: ext- [phone] 03/12/2021 22:58 Patient: JAS HERMOSILLO I Sex: M : 1995 Age: 25yWeight: 74.8 kgHeight/Length: 73 in.BMI: 21.8ALLERGIES: No Known Drug AllergyThe patient's Home Medications are listed below:CONTINUE TAKING THE FOLLOWING MEDICATIONS: metroNIDAZOLE Oral 500 mg, 2x a dayThe source(s) of the original Home Medication information:Not obtained.The following Medications were given to the patient in the Emergency Department:Toradol [IM] IM 30 mg, administered: 23:52 03/12/2021The following Medications were prescribed to the patient:None. Name Value Range Interpretation Code Description Data Cinda rce(s) Supporting Document(s) ID Date Data Source [id number] 03/12/2021 11:03:00 PM EDT [facility] 1 Medication Administration Record [facility] Emergency Department [address] [place] [address] Phone #: ext- [phone] 03/12/2021 22:58 Patient: JAS HERMOSILLO I Sex: M : 1995 Age: 25yWeight: 74.8 kgHeight/Length: 73 inBMI: 21.8ALLERGIES: No Known Drug Allergy Date/Time Medication Administered Medication OrderedGiven TORADOL [IM] (KETOROLAC Toradol IM 30 mg (NOW x1)23:52 03/12/2021 TROMETHAMINE)Maryanne Giordano R.N. Dose: 30 mg IM Name Value Range Interpretation Code Description Data Cinda rce(s) Supporting Document(s) ID Date Data Source [id number] 03/12/2021 11:03:00 PM EDT [facility] 1 General Instructions [facility] Emergency Department [address] [place] [address] Phone #: ext- [phone] 03/12/2021 22:58 Patient: JAS HERMOSILLO I Sex: M : 1995 Age: 25yAcute viral syndromeINSTRUCTIONSDo not work for two days.Warnings: Further evaluation is necessary.GENERAL WARNINGS: Return or contact your physician immediately if your condition worsens orchanges unexpectedly, if not improving as expected, or if other problems arise.Your Curr ent Medications: Your current home medications have been reviewed.CONTINUE TAKING THE FOLLOWING MEDICATIONS:metroNIDAZOLE Oral : 500 mg 2x a day.Understanding of the discharge instructions verbalized by patient.[facility] with: [facility], , , [address], , [place], [address] Follow up in three days if not better. Call for an appointment. Reason for referral: evaluation. ADDITIONAL INFORMATIONViral Syndrome (Adult)A viral illness may cause a number of symptoms such as fever. Other symptoms depend on the partof the body that the virus affects. If it settles in your nose, throat, and lungs, it may cause cough, sorethroat, congestion, runny nose, headache, earache and other ear symptoms, or shortness of breath.If it settles in your stomach and intestinal tract, it may cause nausea, vomiting, cramping, anddiarrhea. Sometimes it causes generalized symptoms like "aching all over," feeling tired, loss ofenergy, or loss of appetite.A viral illness usually lasts anywhere from several days to several weeks, but sometimes it lastslonger. In some cases, a more serious infection can look like a viral syndrome in the first few days ofthe illness. You may need another exam and additional tests to know the difference. Watch for thewarning signs listed below for when to seek medical advice. 2 General Instructions [facility] Emergency Department [address] [place] [address] Phone #: ext- [phone] 03/12/2021 22:58 Patient: JAS HERMOSILLO I Sex: M : 1995 [facility] 25[facility] these guidelines for taking care of yourself at home: If symptoms are severe, rest at home for the first 2 to 3 days. Stay away from cigarette smoke - both your smoke and the smoke from others. You may use pzka-gcn-nixbaop acetaminophen or ibuprofen for fever, muscle achi ng, and headache, unless another medicine was prescribed for this. If you have chronic liver or kidney disease or ever had a stomach ulcer or gastrointestinal bleeding, talk with your healthcare provider before using these medicines. No one who is younger than 18 and ill with a fever should take aspirin. It may cause severe disease or . Your appetite may be poor, so a light diet is fine. Avoid dehydration by drinking 8 to 12, 8-ounce glasses of fluids each day. This may include water; orange juice; lemonade; apple, grape, and cranberry juice; clear fruit drinks; electrolyte replacement and sports drinks; and decaffeinated teas and coffee. If you have been diagnosed with a kidney disease, ask your healthcare provider how much and what types of fluids you should drink to prevent dehydration. If you have kidney disease, drinking too much fluid can cause it build up in the your body and be dangerous to your health. Mmgc-sdn-jhyesro remedies won't shorten the length of the illness but may be helpful for symptoms such as cough, sore throat, nasal and sinus congestion, or diarrhea. Don't use decongestants if you have high blood pressure.Follow-up careFollow up with your healthcare provider if you do not improve over the next week.Call [phone] if any of the following occur: Convulsion Feeling weak, dizzy, or like you are going to faint Chest pain, or more than mild shortness of breathWhen to seek medical adviceCall your healthcare provider right away if any of these occur: Cough with lots of colored sputum (mucus) or blood in your sputum Chest pain, shortness of breath, wheezing, or trouble breathing 3 General Instructions [facility] Emergency Department [address] [place] [address] Phone #: ext- [phone] 03/12/2021 22:58 Patient: JAS HERMOSILLO I Sex: M : 1995 Age: 25y Severe headache; face, neck, or ear pain Severe, constant pain in the lower right side of your belly (abdominal) Continued vomiting (can't keep liquids down) Frequent diarrhea (more than 5 times a day); blood (red or black color) or mucus in diarrhea Feeling weak, dizzy, or like you are going to faint Extreme thirst Fever of 100.4F (38C) or higher, or as directed by your healthcare provider [phone] [facility]. [address] [place] [address]. All rights reserved. This information is not intended as asubstitute for professional medical care. Always follow your healthcare professional's instructions. You have been given the following additional information: Viral Syndrome (Adult) Do not work for two days.(Electronically signed by Mic Sandra 03/13/2021 00:49) Name Value Range Interpretation Code Description Data Cinda rce(s) Supporting Document(s) ID Date Data Source [id number] 03/12/2021 11:03:00 PM EDT [facility] 1 Clinical Report - Nurses [facility] Emergency Department [address] [place] [address] Phone #: ext- [phone] 03/12/2021 22:58 Patient: JAS HERMOSILLO I Sex: M : 1995 Age: 25yTRIAGEArrived by private vehicle.Chief Complaint: FEVER.( FEVER X 4 DAYS). He has had a headache. 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 Recently seen in a medical facility. --23:06 03/12/21 Maryanne Giordano R.N.23:00 03/12/21. BP: 145/88. MAP: 107. HR: 77. RR: 16. O2 saturation: 96%. Temp: 99.5 F. Pain levelnow: 6/10. --23:06 03/12/21 Maryanne Giordano R.N.Acuity: LEVEL 3. --00:32 03/13/21 Maryanne Giordano R.N.Weight: 74.8 kg stated. Height/Length: 73 inches Per Patient. BMI: 21.8. --23:06 03/12/21 Maryanne Giordano R.N.MedicationsmetroNIDAZOLE Oral 500 mg, 2x a day. --23:02 03/12/21 Maryanne Giordano R.N.AllergiesNo Known Drug Allergy. --00:32 03/13/21 Maryanne Giordano R.N.PROBLEMS:no known problems.ADDITIONAL SURGERIES:no known surgeries.HistoryPAST MEDICAL HX: Negative. Immunizations: up-to-date.SOCIAL HX: Current every day smoker (electronic cigarrettes). No alcohol use or drug use. No recenttravel. No known contact with a sick individual. He was offered HIV testing but declined and hepatitis Ctesting but declined. He has not traveled outside the [place]Infectious disease exposure: The patient was not exposed to Coronavirus.SELF HARM ASSESSMENT: Self harm assessment was performed. The patient answered "no" to thequestion(s) "Have you recently felt down, depressed, or hopeless?", "Do you have thoughts of harming orkilling yourself?", "Do you have a plan for harming or killing yourself?", "Have you recently had thoughts 2 Clinical Report - Nurses [facility] Emergency Department [address] [place] [address] Phone #: ext- [phone] 03/12/2021 22:58 Patient: JAS HERMOSILLO I Sex: M : 1995 Age: 25y about harming or killing others?", "Do you have any dangerous items in your possession?", "Have you noticed less interest or pleasure in doing things?", "Are you here because you tried to hurt yourself?" and "Have you ever tried to hurt yourself before today?". ABUSE ASSESSMENT: No report of abuse. NUTRITIONAL RISK ASSESSMENT: The nutritional risk assessment revealed no deficiencies. FUNCTIONAL ASSESSMENT: Functional assessment: no impairments noted. LEARNING NEEDS ASSESSMENT: The learning needs assessment revealed no barriers. FALL RISK ASSESSMENT: Fall risk assessment completed. No risk factors identified. SKIN INTEGRITY ASSESSMENT: Skin integrity risk assessment completed. No skin integrity risk identified. --23:06 03/12/21 Maryanne Giordano R.N. FAMILY HX: Unknown family medical history due to adoption. --23:57 03/12/21 Mic Sandra.PHYSICAL ASSESSMENTAmbulatory to room.GENERAL / NEURO / PSYCH: Alert. Oriented X 4. Appears in no acute distress.HEENT: Pupils equal, round and reactive to light.RESPIRATORY: Respirations not labored. Chest nontender. Breath sounds within normal limits.CVS: Normal sinus rhythm noted. Capillary refill less than 2 seconds. Pulses within normal limits.GI / : Abdomen soft and nontender and normal bowel sounds.SKIN: Skin intact. Skin is warm. Normal skin turgor. --23:07 03/12/21 Maryanne Giordano R.N.NURSING PROGRESS NOTESThe plan of care for this patient has been created. Patient gowned. Head of bed elevated.Reassurance given. Two patient identifiers checked. Call light placed in reach. Side rails up x 1. Bedplaced in lowest position. Brakes of bed on. Patient ready for evaluation- ED physician notified. --23: Maryanne Giordano R.N. 23:52 03/12/2021 Toradol (Ketorolac Tromethamine) IM 30 mg given. Given in the right gluteus mali. Allergies verified and confirmed 5 rights. Information reviewed with patient including reason for taking this medication, signs of allergic reaction and precautions. Verbalizes understanding. --23:52 03/12/21 Maryanne Giordano R.N. Reassessment after medication administered. Pain gone now. He reports no complaints and he is calm and resting quietly. Overall patient status is improved. GENERAL / NEURO / PSYCH: Alert. Oriented X 4. RESPIRATORY: No respiratory distress. Breath sounds normal. GI / : Bowel sounds within normal limits. 3 Clinical Report - Nurses [facility] Emergency Department [address] [place] [address] Phone #: ext- [phone] 03/12/2021 22:58 Patient: JAS HERMOSILLO I Sex: M : 1995 Age: 25y SKIN: Skin is warm and dry. --00:18 03/13/21 Maryanne Giordano R.N.DISPOSITION / DISCHARGE Condition at departure: improved. No learning barriers present. Disc harge instructions provided and reviewed with the patient. Reviewed referrals. Patient verbalized understanding. Written instructions provided in Iranian. The patient was discharged by the physician. He was discharged home and accompanied by spouse. He left ambulatory and via private vehicle. Patient driving. --00:31 03/13/21 Maryanne Giordano R.N. 00:30 03/13/21. BP: 122/63. MAP: 82. HR: 84. RR: 16. O2 saturation: 94%. Temp: 98.4 F. Pain level now: 0/10. --00:31 03/13/21 Maryanne Giordano R.N.Locked/Released at 03/13/2021 00:32 by Maryanne Giordano R.N. Name Value Range Interpretation Code Description Data Cinda rce(s) Supporting Document(s) ID Date Data Source [id number] 03/12/2021 11:03:00 PM EDT [facility] 1 Clinical Report - Physicians/Mid Levels [facility] Emergency Department [address] [place] [address] Phone #: ext- [phone] 03/12/2021 22:58 Patient: JAS HERMOSILLO I Sex: M : 1995 Age: 25y Time Seen: 23:45 03/12/2021. Arrived- By private vehicle. Historian- patient.HISTORY OF PRESENT ILLNESS Chief Complaint: FEVER. This started 4 days and is still present. Fever has been intermittent. The patient has had muscle aches. No fatigue, chest pain, dyspnea, cough or skin breakdown noted. No decreased urine output. Additional history - The patient has had contact with a sick spouse with suspected "flu". Symptoms of the sick contact include fever. He is not immunocompromised. Patient was tested for COVID 3 days ago and it was negative. was also tested and was negative. Mostly complaining of muscle aches and thigh pain. Similar symptoms previously. None. Recent medical care: The patient was seen recently in the emergency department. ( Seen for burning with urination.).REVIEW OF SYSTEMSNo weight loss, palpitations, nausea or constipation. No difficulty with urination or urination, flank pain,sore throat or tick bite. No enlarged lymph nodes, back pain, eye irritation, joint pain or easy bruising. Noextremity swelling. The patient has had a headache, sinus pain and diarrhea. All other systems reviewedand are negative.PAST HISTORYSee nurses notes. No history of pneumonia. Problems: Urethritis. Surgeries: No history of previous surgery. Additional Surgeries: no known surgeries. Medications: metroNIDAZOLE Oral 500 mg, 2x a day.SOCIAL HISTORYNot exposed to second-hand smoke at home. No alcohol use. 2 Clinical Report - Physicians/Mid Levels [facility] Emergency Department [address] [place] [address] Phone #: ext- [phone] 03/12/2021 22:58 Patient: JAS HERMOSILLO I Sex: M : 1995 Age: 25yFAMILY HISTORYUnknown family medical history due to adoption.ADDITIONAL NOTESThe nursing notes have been reviewed.PHYSICAL EXAMVital Signs: 03/12/2021 23:00 BP: 145/88. MAP: 107. HR: 77. RR: 16. O2 saturation: 96%. Temp: 99.5 F.Pain level now: 6/10.Appearance: Alert. No acute distress.Eyes: Pupils equal, round and reactive to light. Eyes normal inspection. (Sclera injected.).ENT: Ears normal. Nose normal. Pharynx normal.Neck: Normal inspection. Neck supple. No meningeal signs or lymphadenopathy.CVS: Tachycardia. Normal heart rhythm. Heart sounds normal.Respiratory: No respiratory distress. Breath sounds normal. Chest nontender.Abdomen: Soft and nontender. Bowel sounds normal. No mass.Back: Normal inspection.Skin: No cyanosis. Skin warm. Normal skin color. No rash. Moderate skin rash located on the chestand back. (febrile to palpation).Extremities: Extremities nontender.Neuro: Oriented X 3. No motor deficit. No sensory deficit.PROGRESS AND PROCEDURESCourse of Care: 00:17 03/13/21. Patient took excedrin prior to arrival and now fever improved. Along withToradol, and excedrin, headache completely resolved. 00:20 03/13/21. Loose bowel movement most likely secondary to antibiotics prescribed 4 days ago. Old medical records ordered. Disposition: Discharged. Condition: stable.CLINICAL IMPRESSION Acute viral syndromeINSTRUCTIONS Do not work for two days. Warnings: Further evaluation is necessary. GENERAL WARNINGS: Return or contact your physician immediately if your condition worsens or 3 Clinical Report - Physicians/Mid Levels [facility] Emergency Department [address] [place] [address] Phone #: ext- [phone] 03/12/2021 22:58 Patient: JAS HERMOSILLO I Sex: M : 1995 Age: 25y changes unexpectedly, if not improving as expected, or if other problems arise. Your Current Medications: Your current home medications have been reviewed. CONTINUE TAKING THE FOLLOWING MEDICATIONS: metroNIDAZOLE Oral : 500 mg 2x a day. Understanding of the discharge instructions verbalized by patient. Follow-up with: [facility] Respective Team [facility], , , [address] [address], , [place], [address] Follow up in three days if not better. Call for an appointment. Reason for referral: evaluation.(Electronically signed by Mic Sandra 03/13/2021 00:49) Name Value Range Interpretation Code Description Data Cinda rce(s) Supporting Document(s) ID Date Data Source [id number] 03/09/2021 01:37:00 PM EDT [facility] Name Value Range Interpretation Code Description Data Cinda rce(s) Supporting Document(s) SARS coronavirus 2 RNA Not Detected [facility] [place] This lab was ordered by [facility] and reported by [facility]. ID Date Data Source [id number] 03/08/2021 01:20:00 PM EDT [facility] [address] [place] [address] PHONE: [phone] FAX: [phone] Name .................. : JAIMEE MARK I Acct Number.................. : [id number] ROOM. ................. : [address] Number ................... : [id number] Stay type ............. : E/R Discharge Date......... ... : 03/07/21 Admit Date ......... : 03/07/21 Admit Phys .................... : ASHIA MCDANIELS Date of ....... : 1995 Family Phys ................... : UNKNOWN JAREK Phone .................. : [phone] Age ................................ : 25 Film# .................. .:[id number] Sex ................................. : M Unsigned transcriptions are preliminary reports and do not represent a medical or legal document SCROTAL [id number] COMPLETE:03/07/21 13:23 KNB [id number] Reason(s): Testicle/Scrotum Pain SCROTAL ULTRASOUND: INDICATION: Scrotal pain. COMPARISON: None available. FINDINGS: The right testicle measures 3.5 x 1.8 x 2.5 cm and the left testicle measures 3.2 x 2 x 2.4 cm. No intratesticular mass or testicular torsion is demonstrated. No significant hydrocele or varicocele is noted. IMPRESSION: No evidence of an intratesticular mass or testicular torsion is demonstrated on the current study. Electronically Reviewed and Signed By Juwan Ayoub MD , 03/08/21 13:20, AML Transcribe Initials: PHUONG , Transcribe Date: 03/07/21 21:52, Dictation Date: Copy for: TERE TADEO via fax Copy for: EMERGENCY DEPT via modem Copy for: 710 MED REC DISCHARGED Page 1 of 1 Name Value Range Interpretation Code Description Data Cinda rce(s) Supporting Document(s) ID Date Data Source [id number] 03/07/2021 12:12:00 PM EDT [facility] 1 OrderSheet [facility] Emergency Department [address] [place] [address] Phone #: pml- [phone] 03/07/2021 12:11 Patient: JAS HERMOSILLO I Sex: M : 1995 Age: 25yWEIGHT:74.8 kg (S)ALLERGIES: No Known Drug AllergyCHIEF COMPLAINT: dysuria, urinary freq., Lt, testicular pain:DIAGNOSIS: UrethritisLAB ORDERSOrder Description Priority Entered Acknowledged InitialedUrinalysis (Clean STAT 12:30 13:18 DorisCatch) Meena Aguirre RN RN; Verbal order per; Julian Murphy PAChlamydia/GC STAT 12:32 03/07/2021 13:18 Meena Aguirre RN RN; Verbal order per; Julian MERINO NOTES: Urine specimenDIAGNOSTIC STUDY ORDERSOrder Description Priority Entered Acknowledged InitialedUS Scrotal STAT 12:58 03/07/2021 13:08 [place](Oxygen?(No)) Julian Murphy professional poker playerRen; Tech1 Reason for Study: Testicle/Scrotum PainMEDICATION/IV/DRIP/FLUID ORDERSOrder Description Priority Entered Acknowledged InitialedRocephin IM 500 14:58 03/07/2021 15:10 Dorismg Julian Aguirre RN PA;Azithromycin PO 14:58 03/07/2021 15:10 Ernpw896 mg X1 Dose: Julian Aguirre RN500 mg (NOW x1) PA;GENERAL ORDERSOrder Description Priority Entered Acknowledged Initialed 2 OrderSheet [facility] Emergency Department [address] [place] [address] Phone #: ext- [phone] 03/07/2021 12:11 Patient: JAS HERMOSILLO I Sex: M : 1995 Age: 25y[Electronically signed by Meena Aguirre RN (15:46 03/07/2021)][Electronically signed by Julian Murphy (22:07 03/07/2021)][Electronically locked by Meena Aguirre RN (15:46 03/07/2021)] Name Value Range Interpretation Code Description Data Cinda rce(s) Supporting Document(s) ID Date Data Source [id number] 03/07/2021 12:12:00 PM EDT [facility] 1 Medication Reconciliation Report [facility] Emergency Department [address] [place] [address] Phone #: ext- [phone] 03/07/2021 12:11 Patient: JAS HERMOSILLO I Sex: M : 1995 Age: 25yWeight: 74.8 kgHeight/Length: 71 in.BMI: 23.0ALLERGIES: No Known Drug AllergyThe patient's Home Medications are listed below:NONE.The source(s) of the original Home Medication information:Not obtained.The following Medications were given to the patient in the Emergency Department:Azithromycin [PO] PO 500 mg, administered: 15:03/07/2021ocephin [IM] IM 500 mg with 1% Lidocaine 2 mL, administered: 15:03/07/2021The following Medications were prescribed to the patient:Flagyl 500 mg tablet Take 1 tablet twice a day as directed for 7 days -- Dispense 14 tablet. Refills: 0.Substitution permitted.Pharmacy - [facility] [id number] [facility] ; [place] [address]. . -- ANGELIQUE Stephenson Name Value Range Interpretation Code Description Data Cinda rce(s) Supporting Document(s) ID Date Data Source [id number] 03/07/2021 12:12:00 PM EDT [facility] 1 Medication Administration Record [facility] Emergency Department [address] [place] [address] Phone #: ext- [phone] 03/07/2021 12:11 Patient: JAS HERMOSILLO I Sex: M : 1995 Age: 25yWeight: 74.8 kgHeight/Length: 71 inBMI: 23ALLERGIES: No Known Drug Allergy Date/Time Medication Administered Medication OrderedGiven ROCEPHIN [IM] (CEFTRIAXONE Rocephin IM 500 mg15:03/07/2021 SODIUM)Meena Aguirre RN Dose: 500 mg IM With: 1% LIDOCAINE 2 mLGiven AZITHROMYCIN [PO] Azithromycin PO 500 mg X1 Dose:15:03/07/2021 Dose: 500 mg Tablets PO 500 mg (NOW x1)Meena Aguirre RN Name Value Range Interpretation Code Description Data Cinda rce(s) Supporting Document(s) ID Date Data Source [id number] 03/07/2021 12:12:00 PM EDT [facility] 1 General Instructions [facility] Emergency Department [address] [place] [address] Phone #: ext- [phone] 03/07/2021 12:11 Patient: JAS HERMOSILLO I Sex: M : 1995 Age: 25yAcute nonspecific urethritisINSTRUCTIONSNo sexual contact for two weeks.Warnings: Further evaluation is necessary. It is very important to follow up with a healthcare provider.GENERAL WARNINGS: Return or contact your physician immediately if your condition worsens orchanges unexpectedly, if not improving as expected, or if other problems arise. Specifically return if painworsens.Your Current Medications: .No home medication.Prescription Medications:Flagyl 500 mg tablet Take 1 tablet twice a day as directed for 7 days -- Dispense 14 tablet. Refills: 0.Substitution permitted.Pharmacy - [address] ; [place] [address]. .Follow-up:Follow up with your doctor in three days if not better. Reason for referral: evaluation and treatment.Summary of care provided to patient and family.Understanding of the discharge instructions verbalized by patient and family. ADDITIONAL INFORMATIONUrethritis, Infection vs. Chemical (Adult Male)You have urethritis. This means an inflammation in your urethra. The urethra is the tube that drainsthe urine out of your bladder through the tip of the penis. Urethritis is most often caused by a bacterialinfection. The infection may be from a sexually transmitted infection (STI). But other things can alsocause it. These things include irritation from soap, lotion, deodorant, or spermicides. The cause ofyour urethritis is uncertain.Women with urethritis often don't have symptoms. Men are more likely to have symptoms. Symptoms 2 General Instructions [facility] Emergency Department [address] [place] [address] Phone #: ext- [phone] 03/07/2021 12:11 Patient: JAS HERMOSILLO I Sex: M : 1995 Age: 25ycan start within 1 week to a month or more after infection. Symptoms can include: Burning or pain when urinating Your penis feels irritated Pus coming from your penis Pain and possible swelling in one or both testiclesUrethritis caused by bacteria is treated with antibiotics. Urethritis may clear up in a few weeks ormonths, even without treatment. But if you don't get treatment, the bacteria that cause the infectioncan stay in the urethra. Even if symptoms go away, you can still have the infection. And you canspread it to others.Your sex partner or partners also need to be treated. This is true even if they have no symptoms. Youcan get infected again if they aren't treated and you have sex with them. Your partner should call hisor her healthcare provider to be looked at and treated.Your urethritis may also be caused by things other than bacteria. These causes include: Chemical irritation from a product used in the genital area. This might be soap, lotions, deodorant, or spermicides. Symptoms often get better within 3 days after the last time you used the product. Damage to the urethra caused by vigorous sex or masturbation Damage to the urethra caused by inserting an object into it. This could happen during surgery in the hospital. A thin, plastic tube (catheter) is put into your bladder to let urine to drain from the bladder during the surgery. Long-term (chronic) urethritis that lasts for weeks or months, or goes away and comes back. This kind of urethritis may be caused by a narrowed urethra. Or it can be caused by an untreated bacterial infection. You may need to see a specialist for diagnosis and treatment.Home careThese guidelines will help you care for yourself at home: Stop using any soap, lotions, or other chemicals that may cause irritation. If you were given antibiotics, take them until they are all gone, or until your healthcare provider tells you to stop. Finish the antibiotics even if your symptoms go away. This is to make sure the infection has completely cleared up. Don't have sex until both you and your partner have finished all of the antibiotics, and your provider tells you that you can't pass on the infection. 3 General Instructions [facility] Emergency Department [address] [place] [address] Phone #: acr- [phone] 03/07/2021 12:11 -- Patient: JAS HERMOSILLO I Sex: M : 1995 Age: 25y You can take acetaminophen or ibuprofen for pain, unless you were given a different pain medicine to use. If you have chronic liver or kidney disease, talk with your provider before taking these medicines. Also talk with your provider if you've had a stomach ulcer or GI bleeding or are taking blood thinner medicines. Don't give aspirin (or medicine that contains aspirin) to a child younger than age 19 unless directed by your child's provider. Taking aspirin can put your child at risk for Loki syndrome. This is a rare but very serious disorder. It most often affects the brain and the liver. Learn about safe sex practices and use them. The safest sex is with a partner who does not have an STI and only has sex with you. Condoms can help keep you from getting some STIs. These include gonorrhea, chlamydia, and HIV. But condoms can't guarantee you won't get these diseases.Follow-up careFollow up with your healthcare provider, or as advised. If an STI culture was taken, call as directed forthe result. If you are diagnosed with an STI, follow up with your provider or your local [facility]. You should have a complete STI screening, including HIV testing. For more information,call the CDC-INFO at 160-411-6695.When to get medical adviceCall your healthcare provider right away if any of these occur: You don't start to get better after 3 days of treatment You can't urinate because of the pain Rash or joint pain Painful sores on the penis Enlarged, painful lumps (lymph nodes) in your groin Testicle pain or your scrotum swells [id number] [facility]. [address] [place] [address]. All rights reserved. This information is not intended as asubstitute for professional medical care. Always follow your healthcare professional's instructions. You have been given the following additional information: Urethritis, Infec Vs Inflam (Adult Male) 4 General Instructions [facility] Emergency Department [address] [place] [address] Phone #: ext- [phone] 03/07/2021 12:11 Patient: JAS HERMOSILLO I Sex: M : 1995 Age: 25y(Electronically signed by ANGELIQUE Stephenson 03/07/2021 22:07) Name Value Range Interpretation Code Description Data Cinda rce(s) Supporting Document(s) ID Date Data Source [id number] 03/07/2021 12:12:00 PM EDT [facility] 1 Clinical Report - Nurses [facility] Emergency Department [address] [place] [address] Phone #: ext- [phone] 03/07/2021 12:11 Patient: JAS HERMOSILLO I Sex: M : 1995 Age: 25yTRIAGEArrived by private vehicle. Historian: patient.Triage time: 12:14 03/07/2021. Acuity: LEVEL 4.Chief Complaint: PAIN WITH URINATION, TESTICULAR PAIN and FREQUENCY VOIDING.Alert. No acute distress.Onset. (5 days ago). ( Left groin tenderness, penile pain, left scrotal pain began 2 days ago). He hashad constipation (last night small amount hard stool).SEPSIS SCREEN: SIRS SCREEN NEGATIVE. SEPSIS SCREEN NEGATIVE. No suspected or confirmedsigns of infection present. --12:22 03/07/21 Meena Aguirre RN12:14 03/07/21. BP: 115/73. MAP: 87. HR: 60. RR: 14. O2 saturation: 97%. Temp: 98 F. Pain level now:10. --12:22 03/07/21 Meena Aguirre RN.Weight: 74.8 kg stated. Height/Length: 71 inches Per Patient. BMI: 23. --12:13 03/07/21 Meena Aguirre RN.MedicationsNone. --12:19 03/07/21 Meena Aguirre RN.AllergiesNo Known Drug Allergy. --12:19 03/07/21 Meena Aguirre RN.ADDITIONAL SURGERIES:no known surgeries.HistoryPAST MEDICAL HX: Immunizations: up-to-date.SOCIAL HX: Smoker- current status unknown (electronic cigarrettes). Occasional alcohol use. No druguse. He was offered HIV testing but declined and hepatitis C testing but declined. He has not traveledoutside the [place]Infectious disease exposure: No infectious disease exposure. The patient was not exposed to Coronavirus.(Denies trsvel). Patient is not a known carrier of tuberculosis, hepatitis, HIV, MRSA or VRE. Patient is not aknown carrier of CRE.SELF HARM ASSESSMENT: Self harm assessment was performed. The patient answered "no" to thequestion(s) "Do you have thoughts of harming or killing yourself?" and "Have you recently had thoughtsabout harming or killing others?". 2 Clinical Report - Nurses [facility] Emergency Department [address] [place] [address] Phone #: ext- [phone] 03/07/2021 12:11 Patient: JAS HERMOSILLO I Sex: M : 1995 Age: 25y ABUSE ASSESSMENT: Abuse assessment. The patient had positive responses to the q uestion(s) "Do you feel safe in your home?" (yes). Abuse denied. No report of abuse. NUTRITIONAL RISK ASSESSMENT: The nutritional risk assessment revealed no deficiencies. FUNCTIONAL ASSESSMENT: Functional assessment: no impairments noted. LEARNING NEEDS ASSESSMENT: The learning needs assessment revealed no barriers. FALL RISK ASSESSMENT: Fall risk assessment completed. No risk factors identified. SKIN INTEGRITY ASSESSMENT: Skin integrity risk assessment completed. No skin integrity risk identified. --12:22 03/07/21 Meena Aguirre RN.PHYSICAL SQIROXLBZL16:15 03/07/21. Ambulatory to room.GENERAL / NEURO / PSYCH: Alert. Oriented X 4. Appears in no acute distress.HEENT: Mucous membranes are pink.RESPIRATORY: Respirations not labored.CVS: Normal heart rate and rhythm.GI / : The patient has had frequency of urination. Urgency of urination. Left testicular tenderness.SKIN: Skin is warm and dry. --12:48 03/07/21 Meena Aguirre RN.NURSING PROGRESS NOTES12:48 03/07/21. Patient gowned. Head of bed elevated. Two patient identifiers checked. Call lightplaced in reach. Bed placed in lowest position. Brakes of bed on. Patient ready for evaluation- EDphysician and PA notified. --12:49 03/07/21 Meena Aguirre RN 13:00 03/07/21. Patient ID band checked for patient name and birthdate: patient confirmed. Instructions provided to collect clean catch urine and patient verbalized understanding. Cristofer an catch urine collected with return of yellow-colored clear urine; sample sent to lab for urinalysis. Specimen labeled in the presence of the patient. --15:44 03/07/21 Meena Aguirre RN 13:22 03/07/21. Patient transported to [facility] by wheelchair with mask and train electronic technician. --15:45 03/07/21 Meena Aguirre RN 14:00 03/07/21. Patient returned from [facility] by wheelchair with mask and train electronic technician. --15:45 03/07/21 Meena Aguirre RN 14:35 03/07/21. The patient reports no complaints and he is calm and resting quietly. Patient waiting for radiology results. --15:46 03/07/21 Meena Aguirre RN 15:03/07/2021 Azithromycin PO Tablets 500 mg given. Allergies verified and confirmed 5 rights. 3 Clinical Report - Nurses [facility] Emergency Department [address] [place] [address] Phone #: ext- [phone] 03/07/2021 12:11 - Patient: JAS HERMOSILLO I Sex: M : 1995 Age: 25y Information reviewed with patient including reason for taking this medication, signs of allergic reaction and precautions. Verbalizes understanding. --15:10 03/07/21 Meena Aguirre RN 15:03/07/2021 Rocephin (cefTRIAXone Sodium) IM 500 mg given. Given in the left deltoid. Allergies verified and confirmed 5 rights. Information reviewed with patient including r porfirio for taking this medication, signs of allergic reaction and precautions. Verbalizes understanding. --15:10 03/07/21 Meena Aguirre RN Change to Details. --15:12 03/07/21 Meena Aguirre RN 15:03/07/2021 Rocephin (cefTRIAXone Sodium) IM 500 mg with 1% Lidocaine 2mL. Given in the left deltoid. Allergies verified and confirmed 5 rights. Information reviewed with patient including reason for taking this medication, signs of allergic reaction and precautions. Verbalizes understanding. --15:12 03/07/21 Meena Aguirre RN 15:37 03/07/2021 Rocephin IM Response: no adverse reaction. --15:43 03/07/21 Meena Aguirre RN.DISPOSITION / DISCHARGE 15:34 03/07/21. BP: 126/74. HR: 62. RR: 18. O2 saturation: 97%. Temp: 98.2 F. Pain level now 6/10. --15:34 03/07/21 [facility] Tech, Ren, Tech1 15:40 03/07/21. Condition at departure: stable. No learning barriers present. Discharge instructions provided and reviewed with the patient. Reviewed medication(s) side effects, precautions, dosing and course i nformation. Prescription(s) sent electronically to pharmacy (Flagyl). Patient verbalized understanding. Written instructions provided in Iranian. The patient was discharged home. He left ambulatory and via private vehicle. Patient driving. --15:43 03/07/21 Meena Aguirre RN.Locked/Released at 03/07/2021 15:46 by Meena Aguirre RN Name Value Range Interpretation Code Description Data Cinda rce(s) Supporting Document(s) ID Date Data Source [id number] 03/07/2021 12:12:00 PM EDT [facility] 1 Clinical Report - Physicians/Mid Levels [facility] Emergency Department [address] [place] [address] Phone #: ext- [phone] 03/07/2021 12:11 Patient: JAS HERMOSILLO I Sex: M : 1995 Age: 25y Time Seen: 12:50 03/07/2021. Arrived- By private vehicle. Historian- spouse.HISTORY OF PRESENT ILLNESS Chief Complaint: DYSURIA, URINARY FREQUENCY and LEFT TESTICULAR PAIN. This started 2 days ago; ( Left groin tenderness, penile pain, left scrotal pain began 2 days ago). He has had constipation (last night small amount hard stool) and is still present. The problem is described as moderate. It was abrupt in onset and has been constant. The patient has had penile discharge, discomfort with urination and testicular pain. No urinary frequency, genital lesion, urgency of urination, flank pain or Gann catheter problem. No inguinal swelling or problem with the foreskin. Able to void. Not voiding only small amounts. The patient has had unprotected intercourse. Similar symptoms previously. Patient has had similar symptoms once. Recent medical care: The patient was seen recently at another facility in a clinic.REVIEW OF SYSTEMSNo fever, chills, flank pain, hematuria or abdominal pain. No vomiting, diarrhea, black stools, bloodystools or headache. No sore throat, blurred vision, chest pain, difficulty breathing or cough. No joint pain,skin rash or back pain.PAST HISTORYAdditional Surgeries:no known surgeries. Medications: None. Allergies: No Known Drug Allergy.SOCIAL HISTORYSmoker- current status unknown (electronic cigarrette). Occasional alcohol use. No drug use.PHYSICAL EXAMVital Signs: 03/07/2021 12:14 BP: 115/73. MAP: 87. HR: 60. RR: 14. O2 satur ation: 97%. Temp: 98 F.Pain level now: 5/10. Have been reviewed as normal. Oxygen saturation normal.Appearance: Alert. Oriented X3. No acute distress.ENT: Normal external inspection. Pharynx normal.Neck: Neck supple.CVS: Heart sounds normal.Respiratory: No respiratory distress. 2 Clinical Report - Physicians/Mid Levels [facility] Emergency Department [address] [place] [address] Phone #: ext- [phone] 03/07/2021 12:11 Patient: JAS HERMOSILLO I Sex: M : 1995 Age: 25y Abdomen: Nontender. Back: Normal external inspection. : A moderate amount of clear urethral discharge. Tenderness of the left testicle and epididymis. No genital lesion, phimosis, herpes-like lesions, paraphimosis or hernia mass. No scrotal mass or swelling or inguinal lymphadenopathy. Skin: Skin warm and dry. Normal skin color. No rash. Normal skin turgor. Extremities: Extremities exhibit normal ROM. Neuro: Oriented X 3.LABS, X-RAYS, AND EKGScrotal Sonogram: No evidence of an intratesticular mass or testicular torsion demonstrated the currentstudy. The exam was performed by a instructor adjunct pharmacy technician. The study was interpreted by the radiologist andcontemporaneously by me. Interpretation time: 14:58 03/07/2021.Laboratory Tests: US Scrotal: (DELMIS: 03/07/2021 12:58) ( [facility] 03/07/2021 13:23) In Progress US SCROTAL Reason(s): Testicle/Scrotum Pain TRANSPORTATION: IV? O2? Oxygen?(No) Room: ED Urinalysis: (DELMIS: 03/07/2021 13:00) ( [facility] 03/07/2021 13:33) Final results Test Result Flag Units (Reference) URINALYSIS URINALYSIS SOURCE R COLOR yellow (NORMAL: Yello CLARITY clear (NORMAL: Clear SPEC GRAVITY 1.015 (1.001 - 1.030 pH 6.5 (5 - 9) GLUCOSE NORM (NORMAL: Negat BILIRUBIN NEG (NORMAL: Negat KETONE NEG (NORMAL: Negat PROTEIN NEG (NORMAL: Negat NITRITE NEG (NORMAL: Negat BLOOD NEG (NORMAL: Negat LEUK EST NEG (NORMAL: Negat UROBILINOGEN NOR (less than 1.0 MICROSCOPIC Not Indicate . Lab Tests Pending: Gonorrhea / chlamydia culture.PROGRESS AND PROCEDURESCourse of Care: 14:58 Mar 07 2021. Evaluation after observation. (Discussed risks, benefits, options, pt isagreeable with dx and tx plan.). Patient and spouse counseled in person regarding the patient's stable condition, diagnosis and need for follow-up. Patient and spouse agrees with plan of care. 14:59 Mar 07 2021. 3 Clinical Report - Physicians/Mid Levels [facility] Department [address] [place] [address] Phone #: ext- [phone] 03/07/2021 12:11 [facility]: [facility]ILLO [id number] Sex: M : 1995 Age: 25y Disposition: Discharged home in good and improved condition (14:59 Mar 07 2021).CLINICAL IMPRESSION Acute nonspecific urethritisINSTRUCTIONS No sexual contact for two weeks. Warnings: Further evaluation is necessary. It is very important to follow up with a healthcare provider. GENERAL WARNINGS: Return or contact your physician immediately if your condition worsens or changes unexpectedly, if not improving as expected, or if other problems arise. Specifically return if pain worsens. Your Current Medications: . No home medication. Prescription Medications: Flagyl 500 mg tablet Take 1 tablet twice a day as directed for 7 days -- Dispense 14 tablet. Refills: 0. Substitution permitted. Pharmacy - [facility] - [id number] [facility] ; [place] [address]. . Follow-up: Follow up with your doctor in three days if not better. Reason for referral: evaluation and treatment. Summary of care provided to patient and family. Understanding of the discharge instructions verbalized by patient and family.(Electronically signed by ANGELIQUE Stephenson 03/07/2021 22:07) Name Value Range Interpretation Code Description Data Cinda rce(s) Supporting Document(s) ID Date Data Source [id number] 03/10/2021 07:02:00 AM EDT [facility] Name Value Range Interpretation Code Description Data Cinda [facility](s) Supporting Document(s) Chlamydia trachomatis rRNA [Presence] in Unspecified specimen by Probe and target amplification method Negative Negative [facility] Neisseria gonorrhoeae rRNA [Presence] in Unspecified specimen by Probe and target amplification method Negative Negative [facility] ID Date Data Source [id number] 03/07/2021 01:33:00 PM EDT [facility] Name Value Range Interpretation Code Description Data Cinda rce(s) Supporting Document(s) URINALYSIS [facility] [place] URINALYSIS SOURCE R [facility] COLOR yellow NORMAL: Yellow [facility] CLARITY clear NORMAL: Clear [facility] Specific gravity of Urine by Test strip 1.015 1.001 - 1.030 [facility] pH 6.5 5 - 9 [facility] Gl[facility] [Mass/volume] in Urine by Test strip NORM NORMAL: Negat [facility] Bilirubin.total [Presence] in Urine by Test strip NEG NORMAL: Negative [facility] Ketones [Presence] in Urine by Test strip NEG NORMAL: Negative [facility] Protein [Mass/volume] in Urine by Test strip NEG NORMAL: Negat [facility] Nitrite [Presence] in Urine by Test strip NEG NORMAL: Negative [facility] BLOOD NEG NORMAL: Negative [facility] LEUK EST NEG NORMAL: Negative [facility] Urobilinogen [Mass/volume] in Urine by Test strip NOR less demetrio n 1.0 mg/dL [facility] MICROSCOPIC Not Indicate [facility] ID Date Data Source [id number] 09/01/2020 10:02:00 AM EST [facility] Name Value Range Interpretation Code Description Data Cinda rce(s) Supporting Document(s) SARS coronavirus 2 RNA Not Detected [facility] This lab was ordered by [facility] Laboratory and reported by [facility]. Procedure Social History No Information Vital Signs ID Date Data Source UNK Name Value Range Interpretation Code Description Data Source(s) Body height 71.50 [in_i] 71.50 [in_i] MEDENT ([facility] ) 5'11.50" Body weight 163.12 [lb_av] 163.12 [lb_av] MEDEN T ([facility]) Body mass index (BMI) [Ratio] 22.4 kg/m2 22.4 k g/m2 MEDENT ([facility]) Body temperature 97.5 [degF] 97.5 [degF] MEDENT ([facility]) Body temperature 97.7 [degF] 97.7 [degF] MEDENT ([facility]) Body height 71 [in_i] 71 [in_i] SARMAD ([facility] ) 5'11" Body weight 170.00 [lb_av] 170.00 [lb_av] TIANNA Velasquez ([facility] ) Body mass index (BMI) [Ratio] 23.7 kg/m2 23.7 k g/m2 SARMAD ([facility] )
[2021-07-24] MEDS ORDERED: ISOVUE-370 76% 100ML VIAL As Ordered ONE (12:46)
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
[2021-07-24] MEDS ORDERED: KETO10TAB PO (14:58)
[2021-07-24 15:16] VITALS: BP 122/57
== END 2021-07-24 15:22 | disposition home or self-care (01) ==
LOC: EDBD 11:22 → M ED 11:22
DX: M54.50 Low back pain, unspecified (principal); M25.561 Pain in right knee; F17.200 Nicotine dependence, unspecified, uncomplicated; E07.9 Disorder of thyroid, unspecified; V49.40XA Driver injured in collision with unspecified motor vehicles in traffic accident, initial encounter
CPT/HCPCS: 70450; 71260; 72125; 73564; 74177; 80047; 85027; 96374; 99284; J1885; Q9967

== ENCOUNTER 2021-12-14 16:14 | Emergency (ER) | payer OTHER ==
[~2021-12-14] VITALS: Ht 180.3 cm; Wt 75.7 kg
[~2021-12-14 16:14] MED LIST: KETO10TAB PO; TRAZ-252 PO
[2021-12-14 16:15] VITALS: BP 142/85
[2021-12-14] MEDS ORDERED: HYDR-643 PO (16:22)
[2021-12-14] MEDS ORDERED: LEXA5TAB13 PO (16:22)
[2021-12-14 17:29] LABS: HEMATOCRIT 48.5 % (42.0-52.0); HEMOGLOBIN 16.7 g/dl (13.5-17.5); MEAN CORPUSCULAR HEMOGLOBIN 30.2 pg (27.0-33.0); MEAN CORPUSCULAR HGB CONC 34.4 g/dl (32.0-36.5); MEAN CORPUSCULAR VOLUME 87.7 fl (80.0-96.0); PLATELET COUNT, AUTOMATED 187 10^3/uL (150-450); RED BLOOD COUNT 5.53 10^6/uL (4.30-6.10); WHITE BLOOD COUNT 6.2 10^3/uL (4.0-10.0)
[2021-12-14 17:57] LABS: AMPHETAMINES LEVEL URINE NEGATIVE (NEGATIVE); BARBITURATES URINE NEGATIVE (NEGATIVE); BENZODIAZEPINES URINE NEGATIVE (NEGATIVE); CANNABINOIDS URINE NEGATIVE (NEGATIVE); COCAINE METABOLITE URINE NEGATIVE (NEGATIVE); METHADONE URINE NEGATIVE (NEGATIVE); OPIATES URINE NEGATIVE (NEGATIVE); PHENCYCLIDINE URINE NEGATIVE (NEGATIVE)
[2021-12-14 18:07] LABS: ACETAMINOPHEN LEVEL < 2.0 UG/ML (10.0-30.0); ALBUMIN 4.8 GM/DL (3.2-5.2); ALT/SGPT 60 U/L (12-78); BILIRUBIN,DIRECT 0.2 MG/DL (0.0-0.2); BILIRUBIN,TOTAL 0.9 MG/DL (0.2-1.0); BLOOD UREA NITROGEN 9 MG/DL (7-18); CALCIUM LEVEL 9.8 MG/DL (8.5-10.1); CARBON DIOXIDE LEVEL 29 MEQ/L (21-32); CHLORIDE LEVEL 106 MEQ/L (98-107); CREATININE FOR GFR 0.93 MG/DL (0.70-1.30); ETHYL ALCOHOL (ETHANOL) < 0.003 % (0.000-0.010); GLOMERULAR FILTRATION RATE > 60.0 (>60); GLUCOSE, FASTING 92 MG/DL (70-100); POTASSIUM SERUM 3.9 MEQ/L (3.5-5.1); SALICYLATE LEVEL < 1.7 MG/DL (5.0-30.0); SODIUM LEVEL 142 MEQ/L (136-145); THYROID STIMULATING HORMONE 0.677 uIU/ML (0.358-3.740); TOTAL PROTEIN 8.2 GM/DL (6.4-8.2)
[2021-12-14 18:20] LABS: RSV AMPLIFICATION NEGATIVE (NEGATIVE)
== END 2021-12-14 20:33 | disposition home or self-care (01) ==
LOC: M ED 16:14
DX: F43.0 Acute stress reaction (principal); F41.1 Generalized anxiety disorder; F17.200 Nicotine dependence, unspecified, uncomplicated; Z79.899 Other long term (current) drug therapy